=== PATIENT | female | born 1955 | race Caucasian/White ===

== ENCOUNTER 2017-03-05 10:50 | Inpatient (IN) | payer MEDICARE ==
[~2017-03-05] VITALS: Ht 154.9 cm; Wt 85.7 kg
[2017-03-05 10:50] VITALS: BP 169/67; PULSE 90; RESP 18; TEMP 97.2; O2SAT 99
--- NOTE | 2017-03-05 10:50 | NUR ---
BROUGHT IN BY KWADWO Tapia AND BREANNA HERNANDEZ, PLACED IN BED #1 AND TRIAGED. REPORT GIVEN TO MARINE
--- NOTE | 2017-03-05 10:55 | NUR ---
Pt states having R dull arm pain scale 10/10. Pt states that pain is usually relieved with ice pack to R side of back, close to R axillary. But pain was unrelieved before ER visit. Pt states that when pain occurs, "R arm feels like it goes , and unable to move R arm". cap refill brisk, pt able to flex and extend fingers effectively. Pt also stated having pain in chest wall before ER visit, but denies chest wall pain at this time. Pt denies any other complaints.
--- NOTE | 2017-03-05 10:56 | NUR ---
ER Dr. Figueroa at bedside examining patient.
[2017-03-05 11:37] LABS: BASOPHILS % (AUTO) 0.3 % (0.0-2.0); EOSINOPHILS # (AUTO) 0.1 K/uL (0.0-0.4); EOSINOPHILS % (AUTO) 1.4 % (0.0-4.0); HEMATOCRIT 45.1 % (36-48); HEMOGLOBIN 14.4 g/dL (12.0-16.0); LYMPHOCYTES # (AUTO) 2.7 K/uL (1.0-5.5); LYMPHOCYTES % (AUTO) 31.5 % (20.5-51.5); MEAN CORPUSCULAR HEMOGLOBIN 27 pg (27-31); MEAN CORPUSCULAR HGB CONC 32 % (32-36); MEAN CORPUSCULAR VOLUME 85 fL (79.0-98.0); MONOCYTES # (AUTO) 0.4 K/uL (0.0-1.0); MONOCYTES % (AUTO) 4.7 % (1.7-9.3); NEUTROPHILS # (AUTO) 5.5 K/uL (1.8-7.7); NEUTROPHILS % (AUTO) 62.1 % (40.0-70.0); PLATELET COUNT (AUTO) 325 K/uL (130-430); RED BLOOD CELL COUNT(AUTO) 5.33 MIL/uL (4.2-6.2); RED CELL DISTRIBUTION WIDTH 12.9 % (9.0-15.0); WHITE BLOOD COUNT (AUTO) 8.7 K/uL (4.8-10.8)
[2017-03-05 11:48] LABS: PROTHROMBIN TIME 10.4 SECS (9.5-12.5)
[2017-03-05 11:50] LABS: CALCIUM 9.3 mg/dL (8.4-11.0); CREATININE 1.12 mg/dL (0.55-1.30); POTASSIUM 3.5 mmol/L (3.5-5.1)
[2017-03-05 11:55] LABS: ALBUMIN 3.8 g/dL (3.4-4.8); TOTAL BILIRUBIN 0.4 mg/dL (0.0-1.0); TOTAL PROTEIN, SERUM 7.5 g/dL (6.4-8.3)
[2017-03-05 12:03] LABS: BILIRUBIN,URINE NEGATIVE (NEGATIVE); BLOOD, URINE NEGATIVE (NEGATIVE); CLARITY/URINE CLEAR (CLEAR); COLOR,URINE YELLOW (YELLOW); GLUCOSE,URINE NEGATIVE (NEGATIVE); KETONES,URINE NEGATIVE (NEGATIVE); LEUKOCYTE ESTERASE ,URINE NEGATIVE (NEGATIVE); NITRITE, URINE NEGATIVE (NEGATIVE); PH,URINE 7.5 (5.0-8.0); PROTEIN URINE NEGATIVE (NEGATIVE); UROBILINOGEN,URINE 0.2 (0.2-1.0)
[2017-03-05] MEDS ORDERED: LORazepam 2 MG/ML VIAL (FOR ER USE) IVP ONE (12:15)
--- NOTE | 2017-03-05 12:33 | NUR ---
Telemetry strip printed, interpreted as SINUS RHYTHM at 87 bpm, and placed on the chart.
--- NOTE | 2017-03-05 12:43 | NUR ---
Pt denies taking any home meds.
--- NOTE | 2017-03-05 12:50 | NUR ---
Pt stable, no signs of distress noted
--- NOTE | 2017-03-05 12:57 | NUR ---
ADMISSION NOTE Received patient from ER via gurney. Patient admitted with diagnosis of Chest Pain. Patient is awake, alert, oriented X 4. Patient oriented to hospital room, call light, toileting, pain management and safety-teach back done. Patient informed that Kyle RN will be nurse and that their room. Personal belongings checked and Belongings List documented. Call light within reach.
--- NOTE | 2017-03-05 13:00 | NUR ---
Patient will be admitted to care of Dr. Redmond. Admitted to tele unit. Will go to room 135. Belongings list completed. Summary report printed. Report given to JEANINE Robison.
[2017-03-05 13:05] VITALS: BP 146/97; PULSE 97; RESP 18; TEMP 98.1; O2SAT 95
[2017-03-05 13:25] VITALS: BP 146/97; PULSE 99; RESP 18; TEMP 98.1; O2SAT 95
[2017-03-05] MEDS ORDERED: ENOXAPARIN SODIUM 40 MG/0.4 ML SYRINGE SUBCUT ONE (13:30)
[2017-03-05] MEDS ORDERED: LISI2.5T48 PO (13:32)
[2017-03-05] MEDS ORDERED: ASPI81TA2 PO (13:48)
[2017-03-05] MEDS ORDERED: CARV12.548 PO (13:48)
[2017-03-05] MEDS ORDERED: ATOR40TA68 PO (13:48)
[2017-03-05] MEDS ORDERED: CLOP75TA2 PO (13:48)
[2017-03-05] MEDS ORDERED: SIMV40TA5 PO (13:48)
[2017-03-05] MEDS ORDERED: FURO40TA5 PO (13:48)
--- NOTE | 2017-03-05 14:46 | NUR ---
CONSULT REASON FOR CONSULT: CHEST PAIN ORDERED BY PHYSICIAN: CRISTHIAN CONSULTING PHYSICIAN: LIZETTE PERSON WHO WAS NOTIFIED: MINDY CALLED FOR DOCTOR LIZETTE BUT DR. LIU IS SURGICAL INSTRUMENT TECHNICIAN FOR HIM
--- NOTE | 2017-03-05 16:34 | NUR ---
Notes Patient resting. Denies chest pain. General discomfort tolerable at this time. Call light in reach.
[2017-03-05] MEDS ORDERED: DOCUSATE SODIUM 100 MG CAPSULE PO PRN (16:45)
[2017-03-05] MEDS ORDERED: MORPHINE 2 MG/ML INJ. SYRINGE IVP PRN (16:45)
[2017-03-05] MEDS ORDERED: ZOLPIDEM TARTRATE 5 MG TABLET PO PRN (16:45)
[2017-03-05] MEDS ORDERED: ACETAMINOPHEN 325 MG TABLET PO PRN (16:45)
[2017-03-05] MEDS ORDERED: POTASSIUM CHLORIDE 10 MEQ TAB.PRT.SR PO PRN (16:45)
[2017-03-05] MEDS ORDERED: ONDANSETRON HCL 4 MG/2 ML VIAL IVP PRN (16:45)
[2017-03-05] MEDS ORDERED: MAGNESIUM SULFATE 50 ML IV PRN (16:45)
[2017-03-05] MEDS ORDERED: LORazepam 2 MG/ML VIAL IVP PRN (16:45)
[2017-03-05 16:56] VITALS: BP 169/105; PULSE 99; RESP 18; TEMP 98.6; O2SAT 98
--- NOTE | 2017-03-05 18:11 | NUR ---
Notes Patient stated only allergy is Talwin.
--- NOTE | 2017-03-05 18:12 | NUR ---
Closing Note Patient needs met throughout shift. Patient denies chest pain since admission to unit. Stated general discomfort has been tolerable. Verbalized she will call for assistance when any is required. Will continue to monitor until patient care is endorsed to oncoming shift nurse.
--- NOTE | 2017-03-05 19:40 | NUR ---
PM SHIFT ASSESSMENT RECEIVED PATIENT LYING IN BED, AOX4, VITAL SIGNS STABLE. DENIES ANY SOB OR CHEST PAIN AT THIS TIME. IV LINE TO LAC INTACT AND PATENT, NO SIGNS OF INFILTRATION NOTED. POC DISCUSSED WITH PATIENT, VERBALIZED UNDERSTANDING, COMPLIANT. ORIENTED TO USE CALL LIGHT FOR NURSE ASSISTANCE, LIGHT WITHIN REACH, SAFETY MEASURES IN PLACE, WILL MONITOR.
[2017-03-05 20:00] VITALS: BP 153/96; PULSE 87; RESP 20; TEMP 98; O2SAT 90
[2017-03-05] MEDS: CARVEDILOL 12.5 MG TABLET (COREG) PO SCH (20:41)
--- NOTE | 2017-03-05 20:45 | NUR ---
RN ROUNDS PATIENT AWAKE, DUE MEDICATIONS ADMINISTERED, BP STABLE. PATIENT REQUESTING ICE PACKS FOR RIGHT KNEE PAIN, REFUSED PAIN MEDICATIONS AT THIS TIME.
--- NOTE | 2017-03-05 21:38 | NUR ---
MD DR. LIU MAKING ROUNDS, NEW ORDERS FOR MEDICATION GIVEN, WILL CARRY OUT.
[2017-03-05] MEDS: FUROSEMIDE 40 MG/4 ML VIAL IVP SCH (21:53)
--- NOTE | 2017-03-05 23:33 | NUR ---
Christophe Winters spoke with Debi
--- NOTE | 2017-03-05 23:46 | NUR ---
MD/CRITICAL LAB PATIENT'S SECOND TROPONIN ELEVATED. PAGED DR. LIU, CALLED BACK, UPDATED HIM ON CRITICAL TROPONIN LEVEL. NO NEW ORDERS AT THIS TIME. STATES COMBINE THE 0300 TROPONIN LEVEL WITH 0500 BLOOD DRAW. PATIENT DENIES ANY CHEST PAIN OR SOB AT THIS TIME.
[2017-03-06] VITALS (7 sets, daily range): BP systolic 114–152; BP diastolic 70–90; PULSE 77–85; RESP 16–20; TEMP 96.8–98.7; O2SAT 91–99
--- NOTE | 2017-03-06 00:27 | NUR ---
RN ROUNDS PATIENT ASLEEP AT THIS, RESPIRATIONS EVEN AND UNLABORED. VITAL SIGNS STABLE. SAFETY MEASURES IN PLACE, CALL LIGHT IN REACH, WILL MONITOR.
--- NOTE | 2017-03-06 02:15 | NUR ---
RN ROUNDS PATIENT AWAKE, NO SOB NOTED, DENIES ANY CHEST PAIN. PATIENT C/O OF PAIN TO RIGHT LEG, ICE PACKS GIVEN, PATIENT REFUSING PAIN MEDICATION FOR LEG PAIN.
--- NOTE | 2017-03-06 04:05 | NUR ---
RN ROUNDS PATIENT SLEEPING, RESPIRATIONS EVEN AND UNLABORED. VITAL SIGNS STABLE. SAFETY MEASURES IN PLACE, CALL LIGHT IN REACH, WILL MONITOR.
--- NOTE | 2017-03-06 06:27 | NUR ---
RN ROUNDS PATIENT SLEEPING, RESPIRATIONS EVEN AND UNLABORED. NEEDS ATTENDED TO, SAFETY MEASURES MAINTAINED, CALL LIGHT IN REACH, WILL CONTINUE TO MONITOR UNTIL REPORT GIVEN AM NURSE.
[2017-03-06 06:30] LABS: BASOPHILS % (AUTO) 0.5 % (0.0-2.0); EOSINOPHILS # (AUTO) 0.2 K/uL (0.0-0.4); EOSINOPHILS % (AUTO) 1.7 % (0.0-4.0); HEMOGLOBIN 14.6 g/dL (12.0-16.0); LYMPHOCYTES # (AUTO) 3.5 K/uL (1.0-5.5); LYMPHOCYTES % (AUTO) 35.4 % (20.5-51.5); MEAN CORPUSCULAR HEMOGLOBIN 27 pg (27-31); MEAN CORPUSCULAR HGB CONC 32 % (32-36); MEAN CORPUSCULAR VOLUME 86 fL (79.0-98.0); MONOCYTES # (AUTO) 0.6 K/uL (0.0-1.0); MONOCYTES % (AUTO) 5.7 % (1.7-9.3); NEUTROPHILS # (AUTO) 5.6 K/uL (1.8-7.7); NEUTROPHILS % (AUTO) 56.7 % (40.0-70.0); PLATELET COUNT (AUTO) 311 K/uL (130-430); RED BLOOD CELL COUNT(AUTO) 5.33 MIL/uL (4.2-6.2); RED CELL DISTRIBUTION WIDTH 12.6 % (9.0-15.0); WHITE BLOOD COUNT (AUTO) 9.9 K/uL (4.8-10.8)
[2017-03-06 06:55] LABS: CALCIUM 9.3 mg/dL (8.4-11.0); CREATININE 1.01 mg/dL (0.55-1.30); POTASSIUM 4.1 mmol/L (3.5-5.1)
--- NOTE | 2017-03-06 08:00 | NUR ---
initial notes rec patient awake alert with hob elevated. ivl on the l ac intact. no infiltration noted. denies pain at this time. simón legs noted to be swollen, no redness noted on the r leg. r knee with ice pack in place. resp easy and unlabored, no sob noted. bed in low position and side rails up and locked. call light iwthn reached and knows when to call for assistance.
[2017-03-06] MEDS: CLOPIDOGREL BISULFATE 75 MG TABLET PO SCH (08:32)
[2017-03-06] MEDS: CARVEDILOL 12.5 MG TABLET (COREG) PO SCH ×2 (08:32→20:39)
[2017-03-06] MEDS: ATORVASTATIN 20 MG TABLET PO SCH (08:32)
[2017-03-06] MEDS: LISINOPRIL 5 MG TABLET PO SCH (08:33)
[2017-03-06] MEDS: ASPIRIN 81 MG TAB.CHEW PO SCH (08:33)
[2017-03-06] MEDS ORDERED: FUROSEMIDE 40 MG TABLET PO SCH (09:00)
[2017-03-06] MEDS ORDERED: ENOXAPARIN SODIUM 40 MG/0.4 ML SYRINGE SUBCUT SCH (09:00)
[2017-03-06] MEDS: FUROSEMIDE 40 MG/4 ML VIAL IVP SCH ×2 (09:00→20:39)
--- NOTE | 2017-03-06 10:00 | NUR ---
rounds seen by dr hall and with orders. due meds given as ordered. assisted to the br, pt is limping and able to walk with assistance.
--- NOTE | 2017-03-06 10:06 | NUR ---
Nutrition Update Leighton Scale 18 noted. Pt admitted for chest pain. Diet: 2 gm Na BMI: 35.7 kg/m2 RD to follow per nutrition care standards.
--- NOTE | 2017-03-06 12:00 | NUR ---
rounds eating lunch. resting comfortably at this time.
[2017-03-06] MEDS ORDERED: FUROSEMIDE 40 MG/4 ML VIAL IVP ONE (13:30)
--- NOTE | 2017-03-06 14:00 | NUR ---
rounds venous doppler done at bedside . no acute distress noted.
--- NOTE | 2017-03-06 16:00 | NUR ---
rounds seen by dr polk and with orders. resting comfortably. call light within reached and no sob noted.
--- NOTE | 2017-03-06 18:44 | NUR ---
closing notes pt was instructed re fluid restriction and strict i/o. no osb noted. ambulates with min assists to the br limps but with steady gait. stable, no sob noted. call light within reached.
--- NOTE | 2017-03-06 19:40 | NUR ---
PM SHIFT ASSESSMENT RECEIVED PATIENT SITTING UP IN BED, AOX4, VITAL SIGNS STABLE. DENIES ANY SOB OR CHEST PAIN AT THIS TIME. IV LINE TO LAC INTACT AND PATENT, NO SIGNS OF INFILTRATION NOTED. POC DISCUSSED WITH PATIENT, STRICT I&O, AND NPO AFTER MIDNIGHT, VERBALIZED UNDERSTANDING, COMPLIANT. ORIENTED TO USE CALL LIGHT FOR NURSE ASSISTANCE, CALL LIGHT WITHIN REACH, SAFETY MEASURES IN PLACE, WILL MONITOR.
--- NOTE | 2017-03-06 21:15 | NUR ---
RN ROUNDS PATIENT'S DUE MEDICATIONS ADMINISTERED, VITAL SIGNS STABLE. ICE PACKS GIVEN TO RIGHT KNEE, PATIENT REFUSED PAIN MEDICATION FOR RIGHT KNEE PAIN. SAFETY MEASURES IN PLACE, CALL LIGHT IN REACH, WILL MONITOR.
--- NOTE | 2017-03-06 22:15 | NUR ---
RN ROUNDS PATIENT ASLEEP AT THIS TIME, RESPIRATIONS EVEN AND UNLABORED. SAFETY MEASURES IN PLACE, CALL LIGHT IN REACH, WILL MONITOR.
--- NOTE | 2017-03-07 00:39 | NUR ---
RN ROUNDS PATIENT ASLEEP, RESPIRATIONS EVEN AND UNLABORED. VITALS SIGNS STABLE. SAFETY MEASURES IN PLACE, CALL LIGHT IN REACH, WILL MONITOR.
--- NOTE | 2017-03-07 03:15 | NUR ---
RN ROUNDS PATIENT AWAKE, NO SOB NOTED, DENIES ANY CHEST PAIN. PATIENT C/O OF PAIN TO RIGHT LEG, ICE PACKS GIVEN, PATIENT REFUSING PAIN MEDICATION FOR LEG PAIN. NEEDS ATTENDED TO.
[2017-03-07 03:53] VITALS: BP 131/71; PULSE 80; RESP 16; TEMP 98.1; O2SAT 96
--- NOTE | 2017-03-07 04:41 | NUR ---
RN ROUNDS PATIENT ASLEEP, RESPIRATIONS EVEN AND UNLABORED. VITALS SIGNS STABLE. SAFETY MEASURES IN PLACE, CALL LIGHT WITHIN REACH, WILL MONITOR.
[2017-03-07 06:25] LABS: CALCIUM 9.5 mg/dL (8.4-11.0); CREATININE 1.28 mg/dL (0.55-1.30); POTASSIUM 3.8 mmol/L (3.5-5.1)
[2017-03-07 06:28] LABS: BASOPHILS % (AUTO) 0.4 % (0.0-2.0); EOSINOPHILS # (AUTO) 0.2 K/uL (0.0-0.4); EOSINOPHILS % (AUTO) 1.6 % (0.0-4.0); HEMATOCRIT 47.6 % (36-48); HEMOGLOBIN 15.4 g/dL (12.0-16.0); LYMPHOCYTES % (AUTO) 27.1 % (20.5-51.5); MEAN CORPUSCULAR HEMOGLOBIN 28 pg (27-31); MEAN CORPUSCULAR HGB CONC 32 % (32-36); MEAN CORPUSCULAR VOLUME 85 fL (79.0-98.0); MONOCYTES # (AUTO) 0.8 K/uL (0.0-1.0); MONOCYTES % (AUTO) 7.1 % (1.7-9.3); NEUTROPHILS # (AUTO) 7.2 K/uL (1.8-7.7); NEUTROPHILS % (AUTO) 63.8 % (40.0-70.0); PLATELET COUNT (AUTO) 269 K/uL (130-430); RED BLOOD CELL COUNT(AUTO) 5.59 MIL/uL (4.2-6.2); RED CELL DISTRIBUTION WIDTH 12.8 % (9.0-15.0); WHITE BLOOD COUNT (AUTO) 11.3 K/uL (4.8-10.8)
--- NOTE | 2017-03-07 06:45 | NUR ---
RN ROUNDS PATIENT CONTINUES TO SLEEP, RESPIRATIONS EVEN AND UNLABORED. NPO AT THIS TIME. NEEDS ATTENDED THROUGH OUT SHIFT, SAFETY MEASURES MAINTAINED, CALL LIGHT WITHIN REACH, WILL MONITOR UNTIL REPORT GIVEN TO AM NURSE.
--- NOTE | 2017-03-07 07:51 | NUR ---
OPENING NOTE/RADIOLOGY AT BEDSIDE: PT AAOX4. NO NOTABLE SIGNS OF RESPIRATORY DISTRESS, NO SOB. LUNG SOUNDS CLEAR. PT DENIES CHEST PAIN, SOB, AND DIZZINESS/LIGHTHEADED. SKIN WARM DRY AND COLOR PINK. IV INTACT, PATENT, NO REDNESS/SWELLING/ACTIVE BLEEDING. VITAL SIGNS WNL. PULSES PRESENT ON BILATERAL UPPER AND LOWER EXTREMITIES. NOTED EDEMA ON LEFT FOOT AND RIGHT UPPER LEG. RADIOLOGY FOR L[place]ISCAN AT BEDSIDE TALKING TO PATIENT. ALL NEEDS MET. BED AT LOWEST POSITION, CALL LIGHT IN REACH, EDUCATED PT TO CALL PRIOR TO GETTING UP.
[2017-03-07 08:00] VITALS: BP 119/79; PULSE 81; RESP 16; TEMP 96.6; O2SAT 98
[2017-03-07] MEDS ORDERED: REGADENOSON 0.4 MG/5 ML SYRINGE IVP ONE (09:00)
[2017-03-07] MEDS: LISINOPRIL 5 MG TABLET PO SCH (09:45)
[2017-03-07] MEDS: FUROSEMIDE 40 MG/4 ML VIAL IVP SCH ×2 (09:45→20:33)
[2017-03-07] MEDS: CLOPIDOGREL BISULFATE 75 MG TABLET PO SCH (09:45)
[2017-03-07] MEDS: ASPIRIN 81 MG TAB.CHEW PO SCH (09:46)
[2017-03-07] MEDS: CARVEDILOL 12.5 MG TABLET (COREG) PO SCH ×2 (09:46→20:31)
[2017-03-07] MEDS: ATORVASTATIN 20 MG TABLET PO SCH (09:46)
--- NOTE | 2017-03-07 09:50 | NUR ---
ROUNDING: [facility] NO NOTABLE SIGNS OF RESPIRATORY DISTRESS NOTED, NO SOB. SKIN COLOR PINK. AM MEDS GIVEN PER MD ORDERS, PT TOLERATED WELL. IV INTACT AND PATENT, NO SIGNS OF REDNESS/SWELLING. PT LAYING IN BED COMFORTABLY WITH HOB ELEVATED. PAIN MEDS GIVEN PER MD ORDERS, PT TOLERATED WELL. SAFETY PRECAUTIONS IN PLACE. BED AT LOWEST POSITION, CALL LIGHT IN REACH, RE-ENFORCED TEACHING TO CALL PRIOR TO GETTING UP. ALL NEEDS MET. CONTINUE TO MONITOR.
--- NOTE | 2017-03-07 10:24 | NUR ---
RADIOLOGY: left for radiology
[2017-03-07 11:32] VITALS: BP 146/78; PULSE 86; RESP 18; TEMP 96.7; O2SAT 96
--- NOTE | 2017-03-07 12:10 | NUR ---
ROUNDING: PT LAYING IN BED WITH HOB ELEVATED. PT DENIES PAIN AT THIS TIME. NO NOTABLE SIGNS OF RESPIRATORY DISTRESS. DENIES CHEST PAIN, SOB, DIZZINESS/LIGHTHEADED. PT STATED SHE IS COMFORTABLY. IV INTACT. SAFETY PRECAUTIONS IN PLACE WITH BED AT LOWEST POSITION, CALL LIGHT IN REACH, RE-ENFORCED TEACHING TO CALL PRIOR TO GETTING UP. CONTINUE TO MONITOR.
--- NOTE | 2017-03-07 14:00 | NUR ---
ROUNDING: PT AAOX4. NO NOTABLE SIGNS OF RESPIRATORY DISTRESS. SKIN COLOR PINK. IV INTACT, NO SIGNS OF BLEEDING. PT HAS LEFT LEG ELEVATED. PT DENIES PAIN AT THIS TIME. ALL NEEDS MET. BED AT LOWEST POSITION, CALL LIGHT IN REACH.
[2017-03-07 15:37] VITALS: BP 108/49; PULSE 71; RESP 19; TEMP 96.8; O2SAT 100
[2017-03-07 15:39] VITALS: BP 106/55; PULSE 65; RESP 19; TEMP 96.8; O2SAT 95
--- NOTE | 2017-03-07 16:00 | NUR ---
ROUNDING: PT LAYING IN BED WITH HOB ELEVATED, WATCHING TV. PT DENIES CHEST PAIN, SOB, CHEST PRESSURE,AND LIGHTHEADED/DIZZINESS. IV INTACT, NO REDNESS/SWELLING. PULSES PRESENT ON BILATERAL LOWER EXTREMITIES, DENIES PAIN, FEELS SENSATION. SAFETY PRECAUTIONS IN PLACE. ALL NEEDS MET. CONTINUE TO MONITOR.
--- NOTE | 2017-03-07 18:31 | NUR ---
CLOSING NOTE: PT LAYING IN BED WITH HOB ELEVATED. AAOX4. NO NOTABLE SIGNS OF RESPIRATORY DISTRESS. PT DENIES CHEST PAIN, SOB, LIGHTHEADED/DIZZINESS, CHEST PRESSURE. PT LEFT LEG ELEVATED. PULSES PRESENT ON BILATERAL LOWER EXTREMITIES. IV INTACT, NO SIGNS OF BLEEDING/REDNESS/SWELLING. BED AT LOWEST POSITION, CALL LIGHT IN REACH. RE-ENFORCED TO CALL PRIOR TO AMBULATING, PT VERBALIZED UNDERSTANDING. ALL NEEDS MET AT THIS TIME. WILL ENDORSE PLAN OF CARE TO JEANINE LIMA.
--- NOTE | 2017-03-07 19:20 | NUR ---
initial nursing notes: Patient awake in bed. Patient has IV access on the left AC. Patient denies of having pain.
[2017-03-07 20:15] VITALS: BP 122/79; PULSE 83; RESP 17; TEMP 97; O2SAT 96
--- NOTE | 2017-03-07 21:20 | NUR ---
nursing rounds: Patient is ambulatory to the bathroom. Offered to assist patient with ambulation but patient declines. Patient has no falls and no injuries.
--- NOTE | 2017-03-07 23:20 | NUR ---
nursing rounds: Patient asleep in bed. Patient has no shortness of breath.
[2017-03-08 00:25] VITALS: BP 99/59; PULSE 69; RESP 18; TEMP 99; O2SAT 97
--- NOTE | 2017-03-08 01:20 | NUR ---
nursing rounds: Patient sleeping in bed. Patient's breathing pattern is regular and unlabored.
--- NOTE | 2017-03-08 03:20 | NUR ---
nursing rounds: Patient asleep in bed. Patient has no respiratory distress.
[2017-03-08 04:00] VITALS: BP 109/63; PULSE 72; RESP 20; TEMP 98.2; O2SAT 96
--- NOTE | 2017-03-08 05:20 | NUR ---
nursing rounds: Patient calmly resting in bed. Call light within patient's reach.
[2017-03-08 06:48] LABS: BASOPHILS % (AUTO) 0.4 % (0.0-2.0); EOSINOPHILS # (AUTO) 0.2 K/uL (0.0-0.4); EOSINOPHILS % (AUTO) 1.5 % (0.0-4.0); HEMATOCRIT 44.7 % (36-48); HEMOGLOBIN 14.8 g/dL (12.0-16.0); LYMPHOCYTES # (AUTO) 3.6 K/uL (1.0-5.5); LYMPHOCYTES % (AUTO) 29.9 % (20.5-51.5); MEAN CORPUSCULAR HEMOGLOBIN 28 pg (27-31); MEAN CORPUSCULAR HGB CONC 33 % (32-36); MEAN CORPUSCULAR VOLUME 85 fL (79.0-98.0); MONOCYTES # (AUTO) 0.9 K/uL (0.0-1.0); MONOCYTES % (AUTO) 7.9 % (1.7-9.3); NEUTROPHILS # (AUTO) 7.3 K/uL (1.8-7.7); NEUTROPHILS % (AUTO) 60.3 % (40.0-70.0); PLATELET COUNT (AUTO) 274 K/uL (130-430); RED BLOOD CELL COUNT(AUTO) 5.23 MIL/uL (4.2-6.2); RED CELL DISTRIBUTION WIDTH 12.9 % (9.0-15.0)
[2017-03-08 07:04] LABS: CALCIUM 9.4 mg/dL (8.4-11.0); CREATININE 2.4 mg/dL (0.55-1.30)
--- NOTE | 2017-03-08 07:43 | NUR ---
closing nursing notes: Patient is awake, alert and oriented X 4. Patient is in no acute respiratory distress. No episodes of fall and no injuries throughout the night shift supervisor. Provided nursing report to incoming morning shift nurse, JEANINE Johnson, at patient's bedside.
--- NOTE | 2017-03-08 07:45 | NUR ---
INITIAL NOTE RECEIVED PATIENT FROM GEOSPATIAL EXTRACTOR ANALYSIS NURSE, PATIENT IS SITTING UP IN BED, ASSESSMENT COMPLETE, PATIENT IS AWAKE AND ALERT X 4, PATIENT HAS IV TO LEFT FOREARM SALINE LOCK, FLUSHES WELL, INSTRUCTED PATIENT TO USE CALL GANDHI IF ASSISTANCE IS NEEDED, PATIENT VERBALIZED UNDERSTANDING, NO OTHER NEEDS AT THIS TIME, BED IN LOWEST POSITION, SIDE RAILS UP, CALL GANDHI LEFT NEXT TO PATIENT, FALL PRECAUTIONS IN PLACE, WILL CONTINUE TO MONITOR.
[2017-03-08 08:00] VITALS: BP 115/60; PULSE 75; RESP 16; TEMP 96.9; O2SAT 95
[2017-03-08] MEDS: ATORVASTATIN 20 MG TABLET PO SCH (08:05)
[2017-03-08] MEDS: ASPIRIN 81 MG TAB.CHEW PO SCH (08:06)
[2017-03-08] MEDS: CARVEDILOL 12.5 MG TABLET (COREG) PO SCH ×2 (08:06→20:15)
[2017-03-08] MEDS: CLOPIDOGREL BISULFATE 75 MG TABLET PO SCH (08:06)
[2017-03-08] MEDS: LISINOPRIL 5 MG TABLET PO SCH (08:06)
[2017-03-08] MEDS: FUROSEMIDE 40 MG/4 ML VIAL IVP SCH (08:07)
--- NOTE | 2017-03-08 08:10 | NUR ---
MEDICATIONS PATIENT RECEIVED MORNING MEDICATIONS, EDUCATED PATIENT ON POTENTIAL SIDE EFFECTS OF MEDICATIONS, PATIENT VERBALIZED UNDERSTANDING, INSTRUCTED PATIENT TO CALL ESPECIALLY WHEN GETTING OUT OF BED, PATIENT VERBALIZED UNDERSTANDING, NO OTHER NEEDS AT THIS TIME, WILL CONTINUE TO MONITOR.
--- NOTE | 2017-03-08 09:57 | NUR ---
RN ROUNDS PATIENT IS CURRENTLY RESTING IN BED WATCHING TV, NO SIGNS OF DISTRESS NOTED, NO COMPLAINTS OF PAIN AT THIS TIME, WILL CONTINUE TO MONITOR.
[2017-03-08 12:00] VITALS: BP 102/68; PULSE 83; RESP 20; TEMP 99.2; O2SAT 93
--- NOTE | 2017-03-08 12:11 | NUR ---
RN ROUNDS PATIENT IS SITTING IN BED EATING LUNCH, NO COMPLAINTS OF PAIN OR DISCOMFORT AT THIS TIME, WILL CONTINUE TO MONITOR.
--- NOTE | 2017-03-08 13:44 | NUR ---
RN ROUNDS PATIENT IS CURRENTLY RESTING IN BED, NO SIGNS OF DISTRESS NOTED, NO OTHER NEEDS AT THIS TIME,WILL CONTINUE TO MONITOR.
--- NOTE | 2017-03-08 15:09 | NUR ---
RN ROUNDS PATIENT IS LYING IN BED TALKING TO WHO IS AT BEDSIDE, PATIENT STATES SHE HAS NO PAIN OR DISCOMFORT AT THIS TIME, INSTRUCTED PATIENT TO USE CALL GANDHI IF ANYTHING WAS NEEDED, PATIENT VERBALIZED UNDERSTANDING, NO OTHER NEEDS AT THIS TIME, WILL CONTINUE TO MONITOR.
[2017-03-08 16:00] VITALS: BP 109/60; PULSE 86; RESP 20; TEMP 99.2; O2SAT 94
--- NOTE | 2017-03-08 17:16 | NUR ---
RN ROUNDS PATIENT IS CURRENTLY SITTING UP IN BED WATCHING TV, NO SIGNS OF DISTRESS NOTED, PATIENT STATES SHE IS COMFORTABLE, WILL CONTINUE TO MONITOR.
--- NOTE | 2017-03-08 18:37 | NUR ---
CLOSING NOTE PATIENT IS CURRENTLY RESTING IN BED, NO SIGNS OF DISTRESS NOTED, PATIENT'S BREATHING IS EVEN AND UNLABORED, NO COMPLAINTS OF PAIN AT THIS TIME, ALL NEEDS MET, WILL ENDORSE PATIENT TO FUNERAL PROFESSIONAL NURSE, CALL GANDHI LEFT NEXT TO PATIENT'S HAND, BED IN LOWEST POSITION, BED ALARM ON, SIDE RAILS UP, FALL PRECAUTIONS IN PLACE.
--- NOTE | 2017-03-08 19:20 | NUR ---
initial nursing notes: Patient awake in bed, watching television. Patient's left AC IV access is intact. Patient denies of having pain.
[2017-03-08 20:18] VITALS: BP 108/69; PULSE 76; RESP 16; TEMP 97.6; O2SAT 96
--- NOTE | 2017-03-08 21:20 | NUR ---
nursing rounds: Patient resting in bed. Patient stated that the medications that she has been receiving has helped a lot in decreasing the swelling in her ankles.
--- NOTE | 2017-03-08 23:20 | NUR ---
nursing rounds: Patient is ambulatory to the bathroom with a steady gait. Patient has no falls and no injuries.
[2017-03-09 00:05] VITALS: BP 118/59; PULSE 74; RESP 20; TEMP 98; O2SAT 98
--- NOTE | 2017-03-09 01:20 | NUR ---
nursing rounds: Patient asleep in bed. Patient has no shortness of breath.
--- NOTE | 2017-03-09 03:20 | NUR ---
nursing rounds: Patient sleeping in bed. Patient's breathing pattern is regular and unlabored.
[2017-03-09 04:23] VITALS: BP 109/64; PULSE 66; RESP 20; TEMP 98; O2SAT 94
--- NOTE | 2017-03-09 05:20 | NUR ---
nursing rounds: Patient calmly resting in bed. Call light within patient's reach.
[2017-03-09 06:26] LABS: BASOPHILS % (AUTO) 0.4 % (0.0-2.0); EOSINOPHILS # (AUTO) 0.2 K/uL (0.0-0.4); EOSINOPHILS % (AUTO) 1.7 % (0.0-4.0); HEMATOCRIT 42.7 % (36-48); HEMOGLOBIN 14.3 g/dL (12.0-16.0); LYMPHOCYTES # (AUTO) 3.3 K/uL (1.0-5.5); MEAN CORPUSCULAR HEMOGLOBIN 28 pg (27-31); MEAN CORPUSCULAR HGB CONC 33 % (32-36); MEAN CORPUSCULAR VOLUME 85 fL (79.0-98.0); MONOCYTES # (AUTO) 0.7 K/uL (0.0-1.0); MONOCYTES % (AUTO) 6.8 % (1.7-9.3); NEUTROPHILS % (AUTO) 59.1 % (40.0-70.0); PLATELET COUNT (AUTO) 281 K/uL (130-430); RED BLOOD CELL COUNT(AUTO) 5.05 MIL/uL (4.2-6.2); RED CELL DISTRIBUTION WIDTH 12.6 % (9.0-15.0); WHITE BLOOD COUNT (AUTO) 10.2 K/uL (4.8-10.8)
[2017-03-09 06:40] LABS: CREATININE 2.04 mg/dL (0.55-1.30); POTASSIUM 3.7 mmol/L (3.5-5.1)
--- NOTE | 2017-03-09 07:45 | NUR ---
closing nursing notes: Patient is awake, alert and oriented X 4. Patient is in no acute respiratory distress. Patient denies of having chest pain. No episodes of fall and no injuries throughout the maintenance technician 3rd shift. Provided nursing report to incoming morning shift nurse, JEANINE Johnson, at patient's bedside.
[2017-03-09 08:00] VITALS: BP 105/64; PULSE 72; RESP 18; TEMP 98
[2017-03-09] MEDS: ASPIRIN 81 MG TAB.CHEW PO SCH (08:17)
[2017-03-09] MEDS: CLOPIDOGREL BISULFATE 75 MG TABLET PO SCH (08:17)
[2017-03-09] MEDS: ATORVASTATIN 20 MG TABLET PO SCH (08:17)
[2017-03-09] MEDS: CARVEDILOL 12.5 MG TABLET (COREG) PO SCH (08:18)
[2017-03-09] MEDS: LISINOPRIL 5 MG TABLET PO SCH (08:18)
--- NOTE | 2017-03-09 08:18 | NUR ---
INITIAL NOTE PATIENT IS CURRENTLY RESTING IN BED, NO SIGNS OF DISTRESS NOTED, PATIENT STATES SHE HAS NO PAIN OR DISCOMFORT AT THIS TIME, ASSESSMENT COMPLETE, PATIENT HAS IV TO LEFT FOREARM, SALINE LOCK, FLUSHES WELL, INSTRUCTED PATIENT TO USE CALL GANDHI IF ASSISTANCE IS NEEDED, PATIENT VERBALIZED UNDERSTANDING, NO OTHER NEEDS AT THIS TIME, BED IN LOWEST POSITION, SIDE RAILS UP, CALL GANDHI LEFT NEXT TO PATIENT, FALL PRECAUTIONS IN PLACE, WILL CONTINUE TO MONITOR. Addendum: 03/09/17 at 0820 by Yessica Ferreira RN TIME CHANGE [id number]
--- NOTE | 2017-03-09 08:20 | NUR ---
MEDICATIONS PATIENT RECEIVED MORNING MEDICATIONS, REEDUCATED PATIENT ON POTENTIAL SIDE EFFECTS OF MEDICATIONS, PATIENT VERBALIZED UNDERSTANDING, PATIENT AWARE OF BLOOD PRESSURE MEDICATIONS NOT BEING GIVEN BECAUSE OF LOW BLOOD PRESSURE, NO OTHER NEEDS AT THIS TIME, WILL CONTINUE TO MONITOR.
--- NOTE | 2017-03-09 09:47 | NUR ---
RN ROUNDS' PATIENT IS CURRENTLY RESTING IN BED, NO SIGNS OF DISTRESS NOTED, NO COMPLAINTS OF PAIN OR DISCOMFORT, WILL CONTINUE TO MONITOR, FALL PRECAUTIONS IN PLACE.
[2017-03-09] MEDS ORDERED: COR12.5 PO (10:40)
[2017-03-09] MEDS ORDERED: LISI-209 PO (10:40)
[2017-03-09] MEDS ORDERED: LIP20 PO (10:40)
[2017-03-09] MEDS ORDERED: ASA81 PO (10:40)
[2017-03-09] MEDS ORDERED: CLOP75TA2 PO (10:40)
[2017-03-09] MEDS ORDERED: FURO-150 PO (10:41)
[2017-03-09 11:08] VITALS: BP 113/71; PULSE 76; RESP 17; TEMP 97; O2SAT 97
--- NOTE | 2017-03-09 11:45 | NUR ---
D/C Patient Patient given medication reconciliation form and D/C instructions. Exit Care provided. Patient verbalized understanding. MD discussed with patient the results and treatment provided. Ambulatory with steady gait for discharge to home. Patient in stable condition, ID band removed. IV catheter removed, intact and dressing applied, no active bleeding. Electronic Rx of lasix given. [facility] pharmacy verified with patient and is correct in computer. Patient educated on pain management. All belongings sent with patient.
--- NOTE | 2017-03-13 11:38 | NUR ---
Discharge Follow Up Phone Call COACH TOUR DRIVER phoned patient, , on 03/11/17 and left a voicemail message. COACH TOUR DRIVER phoned patient today and spoke with patient. Patient stated she was not feeling very well. She was fine in the hospital, but upon returning home, she is having arm pain and leg swelling. Patient has filled her Lasix prescription and is taking it as directed. She has not made her follow up appointment with Dr Winters; she had just located the phone number. COACH TOUR DRIVER offered to assist in making the appointment, but patient prefers to make the appointment herself. COACH TOUR DRIVER instructed patient to tell the office staff that she is continuing to have symptoms. COACH TOUR DRIVER also instructed patient to go to the ED if her symptoms became more concerning or if Dr Winters cannot see her in a timely manor. Patient agreed. Patient stated she has not been instructed to weigh herself daily. COACH TOUR DRIVER encouraged patient to do so and gave instructions on same time of day and keeping a log and then discussing with Dr Winters. Patient has a reliable scale at home. Patient has Social Service contact information and will call if she would like further follow up.
== END 2017-03-09 14:50 | disposition home or self-care (01) | DRG 194 ==
LOC: SED 10:50 → STU 12:32
PROVIDERS: ADMIT General Practice; ATTEND General Practice
DX: I11.0 Hypertensive heart disease with heart failure (principal); N17.9 Acute kidney failure, unspecified; I50.43 Acute on chronic combined systolic (congestive) and diastolic (congestive) heart failure; I25.119 Atherosclerotic heart disease of native coronary artery with unspecified angina pectoris; I42.2 Other hypertrophic cardiomyopathy; E78.00 Pure hypercholesterolemia, unspecified; E78.5 Hyperlipidemia, unspecified; M17.11 Unilateral primary osteoarthritis, right knee; E66.9 Obesity, unspecified; I25.2 Old myocardial infarction; Z95.5 Presence of coronary angioplasty implant and graft; Z88.6 Allergy status to analgesic agent; Z68.35 Body mass index [BMI] 35.0-35.9, adult; Z91.14 Patient's other noncompliance with medication regimen
CPT/HCPCS: 36415; 71010; 73564; 80048; 80053; 81003; 83735-TC; 83880; 84484; 85025; 85610-TC; 93005; 93017; 93306; 93923; 93970; 96374; 99285; A9500; J1650; J1940; J2060; J2270; J2785